=== PATIENT | female | born 1965 | race Caucasian/White ===

== ENCOUNTER → 2016-10-16 | Outpatient (CLI) | payer MEDICAID ==
--- NOTE | 2016-10-17 11:41 | MM ---
Reason for exam: screening (asymptomatic). Last mammogram was performed 1 year and 1 month ago. History: Patient is postmenopausal, has history of other cancer at age 48, and had first child at age 33. Physical Findings: A clinical breast exam by your physician is recommended on an annual basis and results should be correlated with mammographic findings. MG 3D Screening Mammo W/Cad Bilateral CC and MLO view(s) were taken. Prior study comparison: September 13, 2015, bilateral MG screening mammo w CAD. August 05, 2014, bilateral MG screening mammo w CAD. There are scattered fibroglandular densities. There is chronic nodularity in the right breast. No significant changes when compared with prior studies. ASSESSMENT: Benign, BI-RAD 2 RECOMMENDATION: Routine screening mammogram of both breasts in 1 year.
== END ==
LOC: RADMAMWWP 14:51
PROVIDERS: ATTEND Obstetrics & Gynecology
DX: Z12.31 Encounter for screening mammogram for malignant neoplasm of breast (principal)
CPT/HCPCS: 77063; G0202

== ENCOUNTER → 2017-12-11 | Outpatient (CLI) | payer MEDICAID ==
--- NOTE | 2017-12-16 08:25 | MM ---
Reason for exam: screening (asymptomatic). Last mammogram was performed 1 year and 2 months ago. History: Patient is postmenopausal, has history of other cancer at age 48, and had first child at age 33. Physical Findings: A clinical breast exam by your physician is recommended on an annual basis and results should be correlated with mammographic findings. MG 3D Screening Mammo W/Cad Bilateral CC and MLO view(s) were taken. Prior study comparison: October 16, 2016, bilateral MG 3d screening mammo w/cad. September 13, 2015, bilateral MG screening mammo w CAD. There are scattered fibroglandular densities. Small area of asymmetric density far posterior and lateral left breast likely superimposed vessels on 3D. 6 month follow up recommended as a precautionary measure. Otherwise, no significant change. ASSESSMENT: Probably benign, BI-RAD 3 RECOMMENDATION: Follow-up diagnostic mammogram of the left breast in 6 months. (include XCCL view)
== END | disposition home or self-care (01) ==
LOC: RADMAMWWP 15:34
PROVIDERS: ATTEND Obstetrics & Gynecology
DX: Z12.31 Encounter for screening mammogram for malignant neoplasm of breast (principal)
CPT/HCPCS: 77063; 77067

== ENCOUNTER → 2017-12-12 | Outpatient (CLI) | payer MEDICAID ==
[2017-12-12 09:38] LABS: HCT 40.9 % (34.0-46.0); HGB 13.7 gm/dL (11.4-16.0); MCH 30.3 pg (25.0-35.0); MCHC 33.4 g/dL (31.0-37.0); MCV 90.8 fL (80.0-100.0); Mean Platelet Volume 7.7; Platelet Count 210 k/uL (150-450); RBC 4.51 m/uL (3.80-5.40); RDW 13.3 % (11.5-15.5); WBC 5.7 k/uL (3.8-10.6)
[2017-12-12 10:10] LABS: T4, Free (Free Thyroxine) 0.98 ng/dL (0.78-2.19)
== END | disposition home or self-care (01) ==
LOC: LABWHC1 09:02
PROVIDERS: ATTEND Obstetrics & Gynecology
DX: Z13.1 Encounter for screening for diabetes mellitus (principal); Z13.220 Encounter for screening for lipoid disorders
CPT/HCPCS: 36415; 80061; 82947; 84439; 84443; 84479; 85027

== ENCOUNTER → 2018-04-07 | Outpatient (CLI) | payer MEDICAID ==
[2018-04-07 12:33] LABS: HCT 39.1 % (34.0-46.0); HGB 13.2 gm/dL (11.4-16.0); MCH 31.2 pg (25.0-35.0); MCHC 33.7 g/dL (31.0-37.0); MCV 92.6 fL (80.0-100.0); Mean Platelet Volume 8.3; Platelet Count 189 k/uL (150-450); RBC 4.22 m/uL (3.80-5.40); RDW 13.3 % (11.5-15.5); WBC 4.9 k/uL (3.8-10.6)
[2018-04-07 16:17] LABS: Albumin 4.4 g/dL (3.80-4.90); Albumin/Globulin Ratio 1.83 (1.20-2.10); Calcium 9.8 mg/dL (8.7-10.3); Globulin 2.4 g/dL (2.1-3.7); LDL Cholesterol,Calculated 129.4 mg/dL (0.0-131.0); Potassium 4.4 mmol/L (3.5-5.5); Total Bilirubin 0.5 mg/dL (0.3-1.2); Total Protein 6.8 g/dL (6.2-8.2)
[2018-04-07 16:27] LABS: T4, Free (Free Thyroxine) 1.1 ng/dL (0.80-1.80)
[2018-04-08 06:49] LABS: VLDL Calculation 28.6 mg/dL (5.00-40.00)
== END | disposition home or self-care (01) ==
LOC: LABWHC1 10:15
PROVIDERS: ATTEND Family Medicine
DX: Z00.00 Encounter for general adult medical examination without abnormal findings (principal); E78.5 Hyperlipidemia, unspecified; E03.9 Hypothyroidism, unspecified; E55.9 Vitamin D deficiency, unspecified
CPT/HCPCS: 36415; 80053; 80061; 84439; 84443; 85027

== ENCOUNTER → 2018-06-17 | Outpatient (CLI) | payer MEDICAID ==
--- NOTE | 2018-06-17 12:11 | MM ---
Reason for exam: follow-up at short interval from prior study. Last mammogram was performed 6 months ago. History: Patient is postmenopausal, has history of endometrial cancer at age 48, and had first child at age 33. Physical Findings: Nurse did not find any significant physical abnormalities on exam. MG 3D Diag Mammo W/Cad LT CC and MLO view(s) were taken of the left breast. Prior study comparison: December 11, 2017, bilateral MG 3d screening mammo w/cad. October 16, 2016, bilateral MG 3d screening mammo w/cad. There are scattered fibroglandular densities. The questioned posterior and lateral asymmetric density is confirmed to represent a tortuous vessel. No significant new findings when compared with previous films. These results were verbally communicated with the patient and result sheet given to the patient on 06/17/18. ASSESSMENT: Negative, BI-RAD 1 RECOMMENDATION: Return to routine screening mammogram schedule for both breasts. Back on schedule.
== END | disposition home or self-care (01) ==
LOC: RADMAMWWP 10:15
PROVIDERS: ATTEND Obstetrics & Gynecology
DX: R92.8 Other abnormal and inconclusive findings on diagnostic imaging of breast (principal)
CPT/HCPCS: 77061; 77065

== ENCOUNTER → 2018-10-09 | Outpatient (CLI) | payer MEDICAID ==
--- NOTE | 2018-10-09 14:00 | CT ---
EXAMINATION TYPE: CT facial bones wo con DATE OF EXAM: 10/09/2018 COMPARISON: None HISTORY: Thyrotoxicosis with diffuse goiter without difficulty in breathing CT DLP: [address] of the paranasal sinuses was performed in the axial and coronal planes. Bone and soft tissue settings are submitted. The paranasal sinuses demonstrate normal aeration and development. No air-fluid levels identified. Minimal mucosal thickening at the base of the right maxillary sinus. The osteal meatal units are patent bilaterally. The nasal septum is midline. No bony destructive changes are seen within the field of view. IMPRESSION: Very mild right sided chronic maxillary sinusitis.
== END ==
LOC: RADCTMAIN 13:35
PROVIDERS: ATTEND Ophthalmology Ophthalmic Plastic and Reconstructive Surgery
DX: J32.0 Chronic maxillary sinusitis (principal)
CPT/HCPCS: 70486

== ENCOUNTER → 2018-10-09 | Outpatient (CLI) | payer MEDICAID | END | disposition home or self-care (01) | LOC: LABWHC1 14:04 | PROVIDERS: ATTEND Ophthalmology Ophthalmic Plastic and Reconstructive Surgery | DX: H02.89 Other specified disorders of eyelid (principal) | CPT/HCPCS: 36415; 82164 ==

== ENCOUNTER → 2018-10-12 | Outpatient (CLI) | payer MEDICAID | END | disposition home or self-care (01) | LOC: LABWHC1 16:52 | PROVIDERS: ATTEND Ophthalmology Ophthalmic Plastic and Reconstructive Surgery | DX: D48.5 Neoplasm of uncertain behavior of skin (principal) | CPT/HCPCS: 36415; 85549 ==

== ENCOUNTER → 2018-11-16 | Outpatient (CLI) | payer MEDICAID ==
--- NOTE | 2018-11-16 13:27 | XR ---
EXAMINATION TYPE: XR chest 2V DATE OF EXAM: 11/16/2018 COMPARISON: 08/05/2013 INDICATION: Sarcoidosis of the lung TECHNIQUE: Frontal and lateral views of the chest are obtained. FINDINGS: The heart size is normal. The pulmonary vasculature is normal. The lungs are clear. There is prominence of the right hilar region. Some underlying adenopathy can't be considered. Prominence of the main pulmonary artery could be considered. IMPRESSION: 1. Prominence of the right hilar region which could indicate underlying lymphadenopathy or some pulmo nary hypertension. CT could be performed for closer evaluation if required. This is an interval martinez e from the comparison study.
== END | disposition home or self-care (01) ==
LOC: RADXRMAIN 10:48
PROVIDERS: ATTEND Family Medicine
DX: D86.0 Sarcoidosis of lung (principal)
CPT/HCPCS: 71046

== ENCOUNTER → 2019-02-11 | Outpatient (CLI) | payer MEDICAID ==
--- NOTE | 2019-02-16 09:48 | MM ---
Reason for exam: screening (asymptomatic). Last mammogram was performed 8 months ago. History: Patient is postmenopausal, has history of endometrial cancer at age 48, and had first child at age 33. Physical Findings: A clinical breast exam by your physician is recommended on an annual basis and results should be correlated with mammographic findings. MG 3D Screening Mammo W/Cad Bilateral CC and MLO view(s) were taken. Prior study comparison: June 17, 2018, left breast MG 3d diag mammo w/cad LT. December 11, 2017, bilateral MG 3d screening mammo w/cad. There are scattered fibroglandular densities. No significant changes when compared with prior studies. ASSESSMENT: Negative, BI-RAD 1 RECOMMENDATION: Routine screening mammogram of both breasts in 1 year.
== END | disposition home or self-care (01) ==
LOC: RADMAMWWP 14:50
PROVIDERS: ATTEND Obstetrics & Gynecology
DX: Z12.31 Encounter for screening mammogram for malignant neoplasm of breast (principal)
CPT/HCPCS: 77063; 77067

== ENCOUNTER → 2019-05-03 | Outpatient (CLI) | payer MEDICAID ==
[2019-05-03 12:03] LABS: HCT 38.5 % (34.0-46.0); HGB 12.9 gm/dL (11.4-16.0); MCHC 33.6 g/dL (31.0-37.0); MCV 89.2 fL (80.0-100.0); Mean Platelet Volume 7.4; Platelet Count 205 k/uL (150-450); RBC 4.32 m/uL (3.80-5.40); WBC 4.1 k/uL (3.8-10.6)
[2019-05-03 18:53] LABS: African American GFR (CKD) 96.2 (60.0-200.0); Albumin 4.2 g/dL (3.80-4.90); Albumin/Globulin Ratio 1.62 (1.60-3.17); Anion Gap 7.1 mmol/L (4.00-12.00); Calcium 9.4 mg/dL (8.7-10.3); Carbon Dioxide 28.9 mmol/L (21.6-31.8); Chol/HDL Ratio 2.48; Globulin 2.6 g/dL (1.6-3.3); LDL Cholesterol,Calculated 77.4 mg/dL (0.0-131.0); Potassium 4.2 mmol/L (3.5-5.5); Total Bilirubin 0.4 mg/dL (0.2-1.2); Total Protein 6.8 g/dL (6.2-8.2); VLDL Calculation 18.6 mg/dL (5.00-40.00)
[2019-05-03 19:02] LABS: T4, Free (Free Thyroxine) 1.3 ng/dL (0.80-1.80)
== END | disposition home or self-care (01) ==
LOC: LABWHC1 10:50
PROVIDERS: ATTEND Obstetrics & Gynecology
DX: E03.9 Hypothyroidism, unspecified (principal); Z13.220 Encounter for screening for lipoid disorders
CPT/HCPCS: 36415; 80053; 80061; 84439; 84443; 84479; 85027

== ENCOUNTER → 2020-02-15 | Outpatient (CLI) | payer MEDICAID ==
[2020-02-15 13:46] LABS: HGB 13.8 gm/dL (11.4-16.0); MCH 29.6 pg (25.0-35.0); MCHC 32.8 g/dL (31.0-37.0); MCV 90.1 fL (80.0-100.0); Mean Platelet Volume 8.7; Platelet Count 205 k/uL (150-450); RBC 4.66 m/uL (3.80-5.40); RDW 13.1 % (11.5-15.5); WBC 6.3 k/uL (3.8-10.6)
[2020-02-15 21:49] LABS: Hemoglobin A1C 5.4 % (4.0-6.0)
[2020-02-16 00:50] LABS: Albumin 4.6 g/dL (3.80-4.90); Albumin/Globulin Ratio 1.64 (1.60-3.17); Anion Gap 10.5 mmol/L (4.00-12.00); BUN/Creat Ratio 18.18 Ratio (12.00-20.00); Calcium 9.8 mg/dL (8.7-10.3); Carbon Dioxide 26.5 mmol/L (21.6-31.8); Chol/HDL Ratio 2.53; Globulin 2.8 g/dL (1.6-3.3); LDL Cholesterol,Calculated 99.4 mg/dL (0.0-131.0); Non-African American GFR(CKD) 56.1 (60.0-200.0); Potassium 4.2 mmol/L (3.5-5.5); Total Bilirubin 0.9 mg/dL (0.3-1.2); Total Protein 7.4 g/dL (6.2-8.2); VLDL Calculation 15.6 mg/dL (5.00-40.00)
[2020-02-16 00:58] LABS: T4, Free (Free Thyroxine) 1.2 ng/dL (0.80-1.80)
[2020-02-16 01:00] LABS: T3, Uptake 26 % (23-37); Thyroid Peroxidase Antibodies <28.0 U/mL (0.0-60.0)
== END | disposition home or self-care (01) ==
LOC: LABWHC1 12:30
PROVIDERS: ATTEND Obstetrics & Gynecology
DX: Z13.29 Encounter for screening for other suspected endocrine disorder (principal); Z13.220 Encounter for screening for lipoid disorders; E05.00 Thyrotoxicosis with diffuse goiter without thyrotoxic crisis or storm
CPT/HCPCS: 36415; 80053; 80061; 83036; 84439; 84443; 84445; 84479; 84481; 85027; 86376

== ENCOUNTER 2020-03-20 07:35 | Day surgery (SDC) | payer MEDICAID ==
[~2020-03-20 07:35] MED LIST: DEXAMETHASONE SOD PHOSPHATE 10 MG/ML 1 ML VIAL IV ONE; HYDROmorphone 0.5 MG/0.5 ML SYRINGE IVP PRN; LACTATED RINGERS 1,000 ML IV SCH; LIDOCAINE 1% (10MG/ML) FOR IV START INTRADERMA PRN; MIDAZOLAM 2 MG/2 ML VIAL IV PRN; ONDANSETRON 4 MG/2 ML VIAL IVP ONE; Pre Op ABX Message 1 EACH MISC MISCELLANE ONE
[2020-03-20 08:19] VITALS: TEMP 98.7
[2020-03-20] MEDS ORDERED: fentaNYL (PF) 50 MCG/ML 2 ML AMP ONE (08:32)
[2020-03-20] MEDS ORDERED: MIDAZOLAM 2 MG/2 ML VIAL ONE (08:32)
[2020-03-20] MEDS ORDERED: LIDOCAINE 1% INJ 10MG/ML (20 ML MDV) ONE (08:32)
[2020-03-20] MEDS ORDERED: PROPOFOL 10 MG/ML 20 ML VIAL IV ONE (08:32)
[2020-03-20] MEDS ORDERED: BUPIVACAINE (PF) 0.5% 30 ML VIAL SQ ONE (08:49)
[2020-03-20] MEDS ORDERED: LIDOCAINE 1% INJ 10MG/ML (20 ML MDV) SQ ONE (08:50)
[2020-03-20 09:07] VITALS: BP 113/74
[2020-03-20 09:24] VITALS: RESP 16
[2020-03-20 09:46] VITALS: PULSE 72
--- NOTE | 2020-03-20 13:18 | OP ---
OPERATIVE REPORT DATE OF SURGERY: 03/20/2020. PREOPERATIVE DIAGNOSIS: Right carpal tunnel syndrome. POSTOP DIAGNOSIS: Right carpal tunnel syndrome. PROCEDURE PERFORMED: Right carpal tunnel release. DESCRIPTION OF PROCEDURE: The patient was taken to the Operative Suite where a sedation was administered by the Department of Anesthesia. I then performed a local injection along the line of the incision with a combination of Marcaine and Xylocaine both without epinephrine. The hand was then prepped and draped in the usual manner. The arm was elevated, exsanguinated and the cuff was inflated to 250 mm of mercury. A longitudinal incision was made along the ring finger ray distal to the wrist crease. Dissection was taken through the skin and subcutaneous tissue, initially sharp through the skin and then blunt through the subcutaneous tissue to ensure protection of any potential terminal transverse branches of the palmar cutaneous nerve. The palmar fascia was then incised under direct vision longitudinally exposing the transverse carpal ligament. The transverse carpal ligament also was incised under direct vision. The dissection was then continued proximally beneath the skin under direct vision to release the distal forearm fascia. The median nerve was then reflected free of tenosynovium to ensure no adhesions. The tourniquet was then released. The wound was then irrigated and the skin was closed with a running 5-0 nylon suture. A soft bulky dressing was applied including a volar plaster splint holding the wrist in a neutral slightly extended position. The patient was then taken to the Recovery Room in satisfactory condition. MMODL / IJN: [id number] /
== END 2020-03-20 10:01 | disposition home or self-care (01) ==
LOC: OR 07:35
PROVIDERS: ATTEND Orthopaedic Surgery Hand Surgery
DX: G56.01 Carpal tunnel syndrome, right upper limb (principal); M77.11 Lateral epicondylitis, right elbow; E03.9 Hypothyroidism, unspecified; R00.2 Palpitations; I10 Essential (primary) hypertension; Z79.1 Long term (current) use of non-steroidal anti-inflammatories (NSAID); Z79.890 Hormone replacement therapy; Z79.899 Other long term (current) drug therapy; Z90.710 Acquired absence of both cervix and uterus; Z98.890 Other specified postprocedural states; E78.5 Hyperlipidemia, unspecified
CPT/HCPCS: 64721; J2250; J1100; J2405; J2001; J3010; J2704

== ENCOUNTER → 2020-04-27 | Outpatient (CLI) | payer MEDICAID ==
--- NOTE | 2020-05-01 08:59 | MM ---
Reason for exam: screening (asymptomatic). Last mammogram was performed 1 year and 2 months ago. History: Patient is postmenopausal, has history of endometrial cancer at age 48, and had first child at age 33. Physical Findings: A clinical breast exam by your physician is recommended on an annual basis and results should be correlated with mammographic findings. MG 3D Screening Mammo W/Cad Bilateral CC and MLO view(s) were taken. Prior study comparison: February 11, 2019, bilateral MG 3d screening mammo w/cad. June 17, 2018, left breast MG 3d diag mammo w/cad LT. There are scattered fibroglandular densities. No significant changes when compared with prior studies. ASSESSMENT: Negative, BI-RAD 1 RECOMMENDATION: Routine screening mammogram of both breasts in 1 year.
== END | disposition home or self-care (01) ==
LOC: RADMAMWWP 14:57
PROVIDERS: ATTEND Obstetrics & Gynecology
DX: Z12.31 Encounter for screening mammogram for malignant neoplasm of breast (principal)
CPT/HCPCS: 77063; 77067

== ENCOUNTER → 2020-09-29 | Outpatient (CLI) | payer MEDICAID ==
[2020-09-29 19:27] LABS: HCT 40.3 % (37.2-46.3); HGB 12.9 g/dL (12.0-15.0); MCH 29.9 pg (27.0-32.0); MCV 93.3 fL (80.0-97.0); Mean Platelet Volume 11.6 fL (9.5-12.2); Platelet Count 211 X 10*3/uL (140-440); RBC 4.32 X 10*6/uL (4.10-5.20); RDW 13.1 % (11.5-14.5); WBC 4.92 X 10*3/uL (4.50-10.00)
[2020-09-29 20:36] LABS: T4, Free (Free Thyroxine) 1.2 ng/dL (0.80-1.80)
[2020-09-29 21:05] LABS: African American GFR (CKD) 82.3 (60.0-200.0); Albumin 4.3 g/dL (3.80-4.90); Albumin/Globulin Ratio 1.79 (1.60-3.17); Anion Gap 6.2 mmol/L (4.00-12.00); BUN/Creat Ratio 18.89 Ratio (12.00-20.00); Calcium 9.7 mg/dL (8.7-10.3); Carbon Dioxide 27.8 mmol/L (21.6-31.8); Chol/HDL Ratio 2.87; Globulin 2.4 g/dL (1.6-3.3); LDL Cholesterol,Calculated 128.8 mg/dL (0.0-131.0); Potassium 4.3 mmol/L (3.5-5.5); Total Bilirubin 0.3 mg/dL (0.2-1.2); Total Protein 6.7 g/dL (6.2-8.2); VLDL Calculation 17.2 mg/dL (5.00-40.00)
[2020-09-29 21:47] LABS: Hemoglobin A1C 5.5 % (4.0-6.0)
== END | disposition home or self-care (01) ==
LOC: LABWHC1 10:01
PROVIDERS: ATTEND Family Medicine
DX: E03.9 Hypothyroidism, unspecified (principal); E55.9 Vitamin D deficiency, unspecified; R94.5 Abnormal results of liver function studies
CPT/HCPCS: 36415; 80053; 80061; 82306; 83036; 84439; 84443; 85027

== ENCOUNTER 2021-01-16 11:00 | Day surgery (SDC) | payer MEDICAID ==
[2021-01-11 15:39] VITALS: BMI 26.6
[~2021-01-16 11:00] MED LIST changes: -DEXAMETHASONE SOD PHOSPHATE 10 MG/ML 1 ML VIAL IV ONE; -HYDROmorphone 0.5 MG/0.5 ML SYRINGE IVP PRN; -MIDAZOLAM 2 MG/2 ML VIAL IV PRN; -ONDANSETRON 4 MG/2 ML VIAL IVP ONE; -Pre Op ABX Message 1 EACH MISC MISCELLANE ONE
[2021-01-16 11:19] VITALS: TEMP 97
[2021-01-16] MEDS ORDERED: PROPOFOL 10 MG/ML 20 ML VIAL IV ONE (12:09)
--- NOTE | 2021-01-16 12:31 | P.PCN ---
Date of Procedure: 01/16/21 Procedure(s) Performed: PREOPERATIVE DIAGNOSIS: Rectal bleeding POSTOPERATIVE DIAGNOSIS: Small hemorrhoids PROCEDURE: Colonoscopy, anoscopy ANESTHESIA: MAC SURGEON: Joshua Ashley M.D. SPECIMENS: None ENDOSCOPIC PROCEDURE: The patient was placed on the endoscopy table in the left decubitus position. The Olympus colonoscope was inserted into the anus and passed under direct visualization to the base of the cecum. The appendiceal orifice was visualized. From that point the scope was slowly withdrawn inspecting all surfaces carefully. There were no neoplastic inflammatory or polypoid lesions throughout the cecum, ascending, transverse, descending, sigmoid and rectum. There was no visible diverticulosis noted. Retroflexion at the anus revealed small internal hemorrhoids without evidence of recent or active bleeding. Digital rectal examination was normal. The anoscope was then utilized. Using the anoscope the internal hemorrhoids were inspected. None appeared significantly enlarged or with evidence of inflammatory change or bleeding. No fissure was seen. The patient was taken to the recovery room in stable condition per anesthesia guidelines. RECOMMENDATIONS: Increase fiber. Follow-up colonoscopy 10 years
[2021-01-16 12:50] VITALS: BP 129/84; PULSE 80; RESP 18
== END 2021-01-16 13:28 | disposition home or self-care (01) ==
LOC: ORWHC2ENDO 11:00
PROVIDERS: ATTEND Surgery
DX: K64.8 Other hemorrhoids (principal); E07.9 Disorder of thyroid, unspecified; Z79.890 Hormone replacement therapy
CPT/HCPCS: 45378; J2704

== ENCOUNTER → 2021-04-18 | Outpatient (CLI) | payer MEDICAID ==
--- NOTE | 2021-04-19 16:16 | BD ---
EXAMINATION TYPE: Axial Bone Density DATE OF EXAM: 04/18/2021 COMPARISON: 2016 CLINICAL HISTORY: Postmenopausal screening Height: 64.5 Weight: 165.9 FRAX RISK QUESTIONS: Alcohol (3 or more units per day): NO Family History (Parent hip fracture): no Glucocorticoids (More than 3mos): no (Ex: prednisone, prednisolone, methylprednisolone, dexamethasone, and hydrocortisone). History of Fracture in Adulthood: no Secondary Osteoporosis: 1. Type 1 Diabetes: no 2. Hyperthyroidism: no 3. Menopause before 45: no 4. Malnutrition: no 5. Chronic liver disease: no Rheumatoid Arthritis: no Current Tobacco Use: no RISK FACTORS HISTORY OF: Surgery to Spine/Hip(right/left)/Wrist (right/left): no Family History of Osteoporosis: no Active: yes Diet low in dairy products/other sources of calcium: yes Postmenopausal woman: yes Lost more than 2 inches in height since high school: no MEDICATIONS: iv infusion for eyes, vit d Thyroid Medications: synthroid How Lon years Additional History: EXAM MEASUREMENTS: Bone mineral densitometry was performed using the iL[employer] System. Bone mineral density as measured about the Lumbar spine is: ----- L1-L4(G/cm2): 1.148 T Score Values are as follows: ----- L2: -0.4 ----- L3: -0.5 ----- L4: -0.2 ----- L1-L4: -0.3 Bone mineral density has: decreased -4.0 % since study of: 09.13.2015 Bone mineral density about the R hip (g/cm2): 0.944 Bone mineral density about the L hip (g/cm2): 0.890 T Score values are as follows: -----R Neck: -0.7 -----L Neck: -1.1 -----R Total: -0.2 -----L Total: 0.0 Bone mineral density has: increased 0.1 % since study of: 09.13.2015 IMPRESSION: Osteopenia (T Score between -2.5 and -1). There is slightly increased risk of fracture and the patient may be considered for treatment. Re-Screen 2-5 years. NOTE: T-SCORE=SD OF THE YOUNG ADULT MEAN.
== END | disposition home or self-care (01) ==
LOC: RADBDWWP 14:58
PROVIDERS: ATTEND Obstetrics & Gynecology
DX: Z12.31 Encounter for screening mammogram for malignant neoplasm of breast (principal); N95.1 Menopausal and female climacteric states; M85.80 Other specified disorders of bone density and structure, unspecified site
CPT/HCPCS: 77080

== ENCOUNTER → 2021-05-21 | Outpatient (CLI) | payer MEDICAID ==
--- NOTE | 2021-05-22 14:20 | MM ---
Reason for exam: screening (asymptomatic). Last mammogram was performed 1 year and 1 month ago. History: Patient is postmenopausal, has history of other cancer at age 55, has history of endometrial cancer at age 48, and had first child at age 33. Physical Findings: A clinical breast exam by your physician is recommended on an annual basis and results should be correlated with mammographic findings. MG 3D Screening Mammo W/Cad Bilateral CC and MLO view(s) were taken. Prior study comparison: April 27, 2020, bilateral MG 3d screening mammo w/cad. February 11, 2019, bilateral MG 3d screening mammo w/cad. There are scattered fibroglandular densities. No significant changes when compared with prior studies. ASSESSMENT: Benign, BI-RAD 2 RECOMMENDATION: Routine screening mammogram of both breasts in 1 year.
== END | disposition home or self-care (01) ==
LOC: RADMAMWWP 15:08
PROVIDERS: ATTEND Obstetrics & Gynecology
DX: Z12.31 Encounter for screening mammogram for malignant neoplasm of breast (principal); N95.1 Menopausal and female climacteric states
CPT/HCPCS: 77063; 77067

== ENCOUNTER → 2021-12-31 | Outpatient (CLI) | payer MEDICAID ==
[2022-01-01 03:23] LABS: T4, Free (Free Thyroxine) 1.63 ng/dL (0.800-1.800)
== END | disposition home or self-care (01) ==
LOC: LABWHC1 15:09
PROVIDERS: ATTEND Ophthalmology Ophthalmic Plastic and Reconstructive Surgery
DX: E05.00 Thyrotoxicosis with diffuse goiter without thyrotoxic crisis or storm (principal)
CPT/HCPCS: 36415; 84439; 84443; 84445; 84481; 86376

== ENCOUNTER → 2022-05-28 | Outpatient (CLI) | payer MEDICAID ==
--- NOTE | 2022-05-31 08:28 | MM ---
Reason for Exam: Screening (asymptomatic). Last screening mammogram was performed 12 month(s) ago. Patient History: Menarche at age 11. First Full-Term at age 33. Late child-bearing (after 30). Left ovary removed at age 48. Right ovary removed at age 48. Hysterectomy at age 48. Postmenopausal. Endometrial cancer, age 48. Other cancer, age 55. Risk Values: Delmy 5 year model risk: 1.8%. NCI Lifetime model risk: 10.5%. Prior Study Comparison: 02/11/2019 Bilateral Screening Mammogram, [facility]. 04/27/2020 Bilateral Screening Mammogram, [facility]. 05/21/2021 Bilateral Screening Mammogram, [facility]. Tissue Density: There are scattered fibroglandular densities. Findings: Analyzed By CAD. There is no suspicious group of microcalcifications or new suspicious mass in either breast. Overall Assessment: Negative, BI-RAD 1 Management: Screening Mammogram of both breasts in 1 year. A clinical breast exam by your physician is recommended on an annual basis and results should be correlated with mammographic findings. Electronically signed and approved by: Vishnu Haddad M.D.
== END | disposition home or self-care (01) ==
LOC: RADMAMWWP 13:05
PROVIDERS: ATTEND Obstetrics & Gynecology
DX: Z12.31 Encounter for screening mammogram for malignant neoplasm of breast (principal); Z78.0 Asymptomatic menopausal state
CPT/HCPCS: 77063; 77067

== ENCOUNTER → 2023-06-25 | Outpatient (CLI) | payer MEDICAID ==
--- NOTE | 2023-06-27 16:04 | MM ---
Reason for Exam: Screening (asymptomatic). Last mammogram was performed 1 year(s) and 1 month(s) ago. Patient History: Menarche at age 11. First Full-Term at age 33. Late child-bearing (after 30). Left ovary removed at age 48. Right ovary removed at age 48. Hysterectomy at age 48. Postmenopausal. Endometrial cancer, age 48. Other cancer, age 55. Risk Values: Delmy 5 year model risk: 2.0%. NCI Lifetime model risk: 10.0%. Prior Study Comparison: 04/27/2020 Bilateral Screening Mammogram, [facility]. 05/21/2021 Bilateral Screening Mammogram, [facility]. 05/28/2022 Bilateral MG 3D screening mammo w/cad, [facility]. Tissue Density: There are scattered fibroglandular densities. Findings: Analyzed By CAD. There appears symmetrical and stable. No significant interval change is evident. Benign round calcifications are within the right breast. No suspicious groups of microcalcifications, spiculated or lobular masses, architectural distortion or other secondary signs of malignancy are mammographically apparent. Overall Assessment: Benign, BI-RAD 2 Management: Screening Mammogram of both breasts in 1 year. A negative mammogram report should not preclude additional follow up of suspicious palpable abnormalities. Patient should continue monthly self breast exam. A clinical breast exam by your physician is recommended on an annual basis and results should be correlated with mammographic findings. Electronically signed and approved by: Eitan Kohler D.O. Radiologis
== END | disposition home or self-care (01) ==
LOC: RADMAMWWP 10:49
PROVIDERS: ATTEND Obstetrics & Gynecology
DX: Z12.31 Encounter for screening mammogram for malignant neoplasm of breast (principal); Z78.0 Asymptomatic menopausal state
CPT/HCPCS: 77063; 77067

== ENCOUNTER → 2024-01-06 | Outpatient (CLI) | payer MEDICAID ==
--- NOTE | 2024-01-06 10:20 | CA ---
Exercise Stress Test Report Name: Lisa Valles Exam Date: 01/06/2024 09:19 Exam Location: [place] Stress Ht (in): Wt (lb): BSA: Ordering Phys: Chino Henriquez DO Referring Phys: Chino Henriquez DO Technologist: Mauro Cespedes Age: 58 Gender: F : 1965 Procedure CPT: Indications: R42 dizziness and giddiness ICD-10 Codes: Patient History: Vertigo, palpitations and JAZMIN. Medications: Meds past 24 hrs: Pretest Chest Pain: STRESS TEST Marques Protocol Exercise Duration (min:sec): 10:[address] Depressions (mm): Angina Score: Eric Score: Resting HR (bpm): 63 Peak HR (bpm): 166 Resting BP (mmHg): 123 / 77 Peak BP (mmHg): 183 / 89 MPHR: 160 Target HR: 136 % MPHR: 104 METS: 12.1 Total Dose: Peak Dose: Atropine: Double Product: 17386 BP Response: Stress Termination: Reached target heart rate Stress Symptoms: No chest pain or symptoms Stress Summary: ECG ANALYSIS Resting ECG: Normal sinus rhythm normal axis normal intervals Stress ECG: Patient exercised on Marques protocol for 10 minutes and 49 seconds achieving 85% of predicted maximal heart rate without chest pain at peak exercise that was bent and half millimeter upsloping ST segment depression in the inferolateral leads. CONCLUSIONS Good exercise tolerance Abnormal stress test by EKG criteria Dr. Dalton Drake MD (Electronically Signed) Final Date: 06 January 2024 10:19
--- NOTE | 2024-01-06 10:21 | CA ---
Transthoracic Echo Report Name: Lisa Valles Age: 58 Gender: F : 1965 Exam Date: 01/06/2024 08:45 Exam Location: [place] [facility] Ht (in): 66 Wt (lb): 160 Ordering Physician: Chino Henriquez DO Attending/Referring Phys: Chino Henriquez DO Tobacco Sample Puller Mary Leslie, RDCS Procedure CPT: Indications: R42 dizziness and giddiness Cardiac Hx: Technical Quality: Fair Contrast 1: Total Dose (mL): Contrast 2: Total Dose (mL): MEASUREMENTS (Male / Female) Normal Values 2D ECHO LV Diastolic Diameter PLAX 4.1 cm 4.2 - 5.9 / 3.9 - 5.3 cm LV Systolic Diameter PLAX 2.8 cm IVS Diastolic Thickness 1.0 cm 0.6 - 1.0 / 0.6 - 0.9 cm LVPW Diastolic Thickness 1.1 cm 0.6 - 1.0 / 0.6 - 0.9 cm LV Relative Wall Thickness 0.5 RV Internal Dim ED PLAX 2.2 cm LA Systolic Diameter LX 3.4 cm 3.0 - 4.0 / 2.7 - 3.8 cm LV Diastolic Volume MOD BP 66.1 cm??? 67 - 155 / 56 - 104 cm??? LV Systolic Volume MOD BP 23.3 cm??? 22 - 58 / 19 - 49 cm??? LV Ejection Fraction MOD BP 64.8 % >= 55 % LV Cardiac Index MOD BP 1412.8 cm???/min???m??? LV Diastolic Volume MOD 4C 85.4 cm??? LV Systolic Volume MOD 4C 30.5 cm??? LV Ejection Fraction MOD 4C 64.3 % LV Cardiac Index MOD 4C 1810.2 cm???/min???m??? LV Diastolic Length 4C 7.6 cm LV Systolic Length 4C 6.5 cm LV Diastolic Volume MOD 2C 44.1 cm??? LV Systolic Volume MOD 2C 14.3 cm??? LV Ejection Fraction MOD 2C 67.5 % LV Cardiac Index MOD 2C 980.7 cm???/min???m??? LV Diastolic Length 2C 6.5 cm LV Systolic Length 2C 5.2 cm LA Volume 57.7 cm??? 18 - 58 / 22 - 52 cm??? LA Volume Index 31.1 cm???/m??? 16 - 28 cm???/m??? Aorta at Sinuses Diameter 3.5 cm M-MODE Aortic Root Diameter MM 3.4 cm LA Systolic Diameter MM 3.2 cm LA Ao Ratio MM 0.9 AV Cusp Separation MM 1.8 cm DOPPLER AV Peak Velocity 154.0 cm/s AV Peak Gradient 9.5 mmHg MV Area PHT 4.6 cm??? Mitral E Point Velocity 84.1 cm/s Mitral A Point Velocity 55.2 cm/s Mitral E to A Ratio 1.5 MV Deceleration Time 164.6 ms TR Peak Velocity 216.0 cm/s TR Peak Gradient 18.7 mmHg Right Ventricular Systolic Press 23.0 mmHg FINDINGS Left Ventricle Left ventricular ejection fraction is estimated at 60-65 %. Mildly increased septal wall thickness. Mildly increased posterior wall thickness. No obvious regional wall motion abnormalities. Left ventricular cavity size normal. Right Ventricle Normal right ventricular size and function. Right ventricular systolic pressure within normal limits. Right Atrium Mild right atrial dilatation. Left Atrium Mildly increased left atrial volume. Mitral Valve Structurally normal mitral valve. Mild mitral regurgitation. No mitral stenosis. Aortic Valve Trileaflet aortic valve. No aortic valve stenosis or regurgitation. Tricuspid Valve Structurally normal tricuspid valve. Mild tricuspid regurgitation. No tricuspid stenosis. Pulmonic Valve Structurally normal pulmonic valve. Trace pulmonic regurgitation. No pulmonic stenosis. Pericardium No pericardial or pleural effusion. Aorta Aorta at upper limits of normal. CONCLUSIONS Normal LV function Mild mitral regurgitation Aortic sclerosis without any stenosis Previewed by: Dr. Dalton Drake MD (Electronically Signed) Final Date: 06 January 2024 10:20
== END | disposition home or self-care (01) ==
LOC: RADECHMAIN 08:29
PROVIDERS: ATTEND Family Medicine
DX: R42 Dizziness and giddiness (principal); R94.39 Abnormal result of other cardiovascular function study; R06.00 Dyspnea, unspecified; R00.2 Palpitations; I70.0 Atherosclerosis of aorta
CPT/HCPCS: 93017; 93306

== ENCOUNTER → 2024-03-09 | Outpatient (CLI) | payer MEDICAID ==
--- NOTE | 2024-03-10 07:15 | CA ---
Stress Echo Report Lisa Valles Age: 58 Gender: F : 1965 Exam Date: 03/09/2024 10:25 Exam Location: [facility] Ht (in): 66 Wt (lb): 160 Ordering Physician: Norah Marmolejo MD ([id number]) Referring Physician: SCOTTY,, Run Lead: Mary Leslie RDCS Technologist Procedure CPT: Indication: R07.9 CHEST PAIN ICD-9 Codes: Rhythm: Patient History: Chest pain, palpitations, hyperlipidemia and family history of heart disease Cardiac Medications: Medications in past 24 hours: Contrast: Stress Results Protocol: Marques Total dose(mL): Exercise Duration (min:sec): 10:[address] Depression (mm): Angina Score: Eric Score: METS: 11.7 Resting HR: 82 Resting BP: 128 / 86 Peak HR: 168 Peak BP: 182 / 91 Max Predicted HR: 160 105 % Max Predicted HR Target HR: 136 Double Product: 42259 Stress Summary: BP Response: Reason for Termination: Reached target heart rate or work-load Cardiac Symptoms: No symptoms ECG Analysis Resting ECG: Stress ECG: Arrhythmia: Echo Analysis Resting Echo: Peak Echo Analysis: MEASUREMENTS (Male/Female) Normal Values CONCLUSIONS Excellent exercise tolerance The patient exercised on the Marques protocol for 10 minutes and achieved 11.7 METS Excellent augmentation in the blood pressure and heart rate in response to exercise Normal electrocardiogram and echocardiogram in response to exercise Dr. Erick Garcia MD (Electronically Signed) Final Date: 10 March 2024 07:15
== END | disposition home or self-care (01) ==
LOC: RADECHMAIN 09:56
PROVIDERS: ATTEND Internal Medicine Interventional Cardiology
DX: R07.9 Chest pain, unspecified (principal); R00.2 Palpitations; E78.5 Hyperlipidemia, unspecified
CPT/HCPCS: 93270; 93351

== ENCOUNTER → 2024-06-28 | Outpatient (CLI) | payer MEDICAID ==
--- NOTE | 2024-06-28 12:17 | BD ---
EXAMINATION TYPE: Axial Bone Density DATE OF EXAM: 06/28/2024 CLINICAL HISTORY: 59 years old Female. ICD-10 CODE: M85.88 OSTEOPENIA , Additional History: Height: 64 Weight: 169 FRAX RISK QUESTIONS: Family History (Parent hip fracture): no Glucocorticoids (More than 3mos): no (Ex: prednisone, prednisolone, methylprednisolone, dexamethasone, and hydrocortisone). History of Fracture in Adulthood: no Secondary Osteoporosis: no RISK FACTORS HISTORY OF: Surgery to Spine/Hip(right/left)/Wrist (right/left): no MEDICATIONS: Thyroid Medications: yes Which medication: Synthroid How Lon+ years Osteoporosis Medications: no EXAM MEASUREMENTS: Bone mineral densitometry was performed using the [employer] System. Bone mineral density as measured about the Lumbar spine is: ----- L1-L4(G/cm2): 1.097 T Score Values are as follows: ----- L1: -0.6 ----- L2: -1.3 ----- L3: -0.7 ----- L4: -0.4 ----- L1-L4: -0.7 Z Score Values are as follows: ----- L1: 0.3 ----- L2: -0.4 ----- L3: 0.2 ----- L4: 0.5 ----- L1-L4: 0.2 Bone mineral density has: Decreased -4.4% since study of: 04/18/2021 Bone mineral density about the R hip (g/cm2): 0.941 Bone mineral density about the L hip (g/cm2): 0.952 T Score values are as follows: -----R Neck: -0.9 -----L Neck: -1.3 -----R Total: -0.5 -----L Total: -0.4 Z Score values are as follows: -----R Neck: 0.1 -----L Neck: -0.3 -----R Total: 0.2 -----L Total: 0.3 Bone mineral density has: Decreased -4.4% since study of: 04/18/2021 FRAX%s: The graph provided illustrates a 7.6% chance for a major osteoporotic fx and a 0.6% chance fo r the hips probability for fx in 10 years time. IMPRESSION: Osteopenia (T Score between -2.5 and -1) remains present. There is slightly increased risk of fracture and the patient may be considered for treatment. Re-Screen 2-5 years. NOTE: T-SCORE=SD OF THE YOUNG ADULT MEAN. [facility], , 06/28/2024 12:14 PM
--- NOTE | 2024-06-28 12:56 | MM ---
Reason for Exam: Screening (asymptomatic). Last screening mammogram was performed 12 month(s) ago. Patient History: Menarche at age 11. First Full-Term at age 33. Late child-bearing (after 30). Left ovary removed at age 48. Right ovary removed at age 48. Hysterectomy at age 48. Postmenopausal. Endometrial cancer, age 48. Other cancer, age 55. Risk Values: Delmy 5 year model risk: 2.0%. NCI Lifetime model risk: 9.7%. Prior Study Comparison: 05/21/2021 Bilateral Screening Mammogram, [facility]. 05/28/2022 Bilateral MG 3D screening mammo w/cad, [facility]. 06/25/2023 Bilateral MG 3D screening mammo w/cad, [facility]. Tissue Density: There are scattered areas of fibroglandular density. Analyzed By CAD. Overall Assessment: Benign, BI-RAD 2 Management: Screening Mammogram of both breasts in 1 year. Electronically signed and approved by: Vishnu Haddad M.D.
== END | disposition home or self-care (01) ==
LOC: RADMAMWWP 10:52
PROVIDERS: ATTEND Family Medicine
DX: Z12.31 Encounter for screening mammogram for malignant neoplasm of breast (principal); M85.88 Other specified disorders of bone density and structure, other site; Z90.722 Acquired absence of ovaries, bilateral; Z78.0 Asymptomatic menopausal state; R92.323 Mammographic fibroglandular density, bilateral breasts
CPT/HCPCS: 77063; 77067; 77080